=== PATIENT | male | born 1940 | race Caucasian/White ===

== ENCOUNTER 2022-08-30 06:49 | Observation (INO) ==
[2022-08-26 13:55] LABS: Basophils # (Auto) 0.08 K/mcL (0.00-0.30); Basophils % (Auto) 1.3 % (0.0-2.0); Eosinophils # (Auto) 0.34 K/mcL (0.00-0.70); Eosinophils % (Auto) 5.3 % (0.0-7.0); Hematocrit 44.9 % (40.1-51.0); Hemoglobin 14.1 g/dL (13.7-17.5); Lymphocytes # (Auto) 1.66 K/mcL (1.50-4.80); Lymphocytes % (Auto) 25.9 % (15.5-49.0); Mean Cell Volume 86.8 fL (80.0-100.0); Mean Corpuscular HGB Conc 31.4 g/dL (31.0-36.0); Mean Platelet Volume 10.7 fL (8.8-12.5); Monocytes # (Auto) 0.53 K/mcL (0.10-0.90); Monocytes % (Auto) 8.3 % (1.0-12.0); Platelet Count 192 K/mcL (140-440); RBC 5.17 M/mcL (4.63-6.08); Red Cell Distribution Width 13.5 % (11.5-14.5); WBC 6.4 K/mcL (4.5-11.0)
[2022-08-26 18:22] LABS: Blood Urea Nitrogen 14 mg/dL (8-23); Calcium 10.3 mg/dL (8.6-10.4); Carbon Dioxide 26 mmol/L (22-30); Chloride 103 mmol/L (96-108); Glomerular Filtration Rate 79; Glucose 86 mg/dL (70-105)
--- NOTE | 2022-08-27 09:57 | EKG ---
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
[~2022-08-30 06:49] MED LIST: AMPICILLIN SODIUM 2 GM in 0.9 % SODIUM CHLORIDE 100 ML IV SCH; GENTAMICIN SULFATE 180 MG in 0.9 % SODIUM CHLORIDE 250 ML IV SCH
[2022-08-30] MEDS ORDERED: LIDOCAINE HCL/PF 100 MG/5 ML SYRINGE IV ONE (08:29)
[2022-08-30] MEDS ORDERED: DEXAMETHASONE 10 MG/ML VIAL ONE (08:29)
[2022-08-30] MEDS ORDERED: fentaNYL 100 MCG/2 ML VIAL IV ONE (08:29)
[2022-08-30] MEDS ORDERED: GLYCOPYRROLATE 0.2 MG/ML VIAL IV ONE (08:29)
[2022-08-30] MEDS ORDERED: KETAMINE 50 MG/ML Syringe (ANEST) IV ONE (08:29)
[2022-08-30] MEDS ORDERED: ONDANSETRON 4 MG/2 ML VIAL ONE (08:29)
[2022-08-30] MEDS ORDERED: ROCURONIUM 10 MG/ML ML IV ONE (08:29)
[2022-08-30] MEDS ORDERED: MAGNESIUM SULFATE 2 GM/50 ML BAG IV ONE (08:29)
[2022-08-30] MEDS ORDERED: ESMOLOL 100 MG/10 ML VIAL IV ONE (08:29)
[2022-08-30] MEDS ORDERED: SUGAMMADEX SODIUM 200 MG/2 ML VIAL IV ONE (08:29)
[2022-08-30] MEDS ORDERED: PROPOFOL 200 MG/20 ML VIAL IV ONE (08:29)
[2022-08-30] MEDS ORDERED: METHOCARBAMOL 1,000 MG/10 ML VIAL IV PRN (09:07)
[2022-08-30] MEDS ORDERED: ePHEDrine 50 MG/ML AMPUL IV PRN (09:07)
[2022-08-30] MEDS ORDERED: ONDANSETRON 4 MG/2 ML VIAL IV PRN ×2 (09:07→10:22)
[2022-08-30] MEDS ORDERED: morphine 2 MG/ML VIAL IV PRN (09:07)
[2022-08-30] MEDS ORDERED: ATROPINE SULFATE 0.4 MG/ML VIAL IV PRN (09:07)
[2022-08-30] MEDS ORDERED: fentaNYL 100 MCG/2 ML VIAL IV PRN (09:07)
[2022-08-30] MEDS ORDERED: LACTATED RINGERS 250 ML IV PRN (09:07)
[2022-08-30] MEDS ORDERED: NALOXONE HCL 0.4 MG/ML VIAL IV PRN (09:07)
[2022-08-30] MEDS ORDERED: ACETAMINOPHEN 1,000 MG/100 ML BAG IV ONE (09:07)
[2022-08-30] MEDS ORDERED: IPRATROPIUM/ALBUTEROL 3 ML AMPUL.NEB NEB PRN (09:07)
[2022-08-30] MEDS ORDERED: METOPROLOL TARTRATE 5 MG/5 ML VIAL IV PRN (09:07)
[2022-08-30] MEDS ORDERED: LACTATED RINGERS 1,000 ML IV SCH (09:15)
[2022-08-30] MEDS ORDERED: HYDROcodone/APAP 5/325MG TABLET PO PRN (10:22)
[2022-08-30] MEDS ORDERED: BISACODYL 10 MG SUPP.RECT PR PRN (10:22)
[2022-08-30] MEDS ORDERED: HYDROmorphone 1 MG/ML SYRINGE IV PRN (10:22)
[2022-08-30] MEDS ORDERED: MAGNESIUM HYDROXIDE 30 ML ORAL.SUSP PO PRN (10:22)
--- NOTE | 2022-08-30 10:22 | Operative Note ---
Brief Operative Note Date of procedure: 08/30/22 Pre-op diagnosis: Bladder stones and BPH with obstruction Post-op diagnosis: same Procedure: Transurethral resection of the prostate and cystolitholapaxy Grafts/Implants: Yes (24 [place]ian three-way Morales catheter with 40 mL in balloon) Anesthesia: GETA Findings: 5-6 1.5 cm bladder stones and large obstructing prostate Complications: none Surgeon: Philippe Vazquez Estimated blood loss (cc): 75 Specimens Removed/Pathology: other (Prostate chips and bladder stones) Condition: stable Disposition: PACU Operative Note Operative Note: After obtaining informed consent from the patient, he was brought to the operating room was placed supine on the operating table. General anesthesia was provided. He was repositioned in a dorsolithotomy position was prepped and draped in usual sterile fashion. Attention was directed to the urethral meatus where a 21 [place]itanian cystoscope was passed per urethra into the bladder. Immediately seen were at least 5 possibly six 1.5 cm round, 10 bladder stones there was no evidence of tumor within the bladder. The prostate was seen to be large and obstructive with an elevated bladder neck and obstruction of the lateral lobes. There was significant bladder irritation due to the bladder stones. The bladder was filled and the cystoscope was removed. The urethra was calibrated using Kieran sounds to 30 Mauritanian. The 28 Mauritanian continuous-flow resectoscope sheath with obturator was then easily passed into the bladder. I began by resection of prostate tissue. I resected the left lateral lobe from the 6:00 to 12 o'clock position from the bladder neck to the verumontanum. The right lateral lobe was resected in a similar fashion. I was not able to identify the ureteral orifices and care was taken at the bladder neck. Once the prostate was open wide and enough to allow better visualization and evacuation of the stones I switched to the 21 [place]ian cystoscope. Using a 550 m laser fiber at bladder fragmentation settings using the thulium laser the stones were fragmented with difficulty. The stones were hard and somewhat gummy. Eventually I used a rigid grasper to further break the stones into smaller pieces which were then evacuated. Once the stone was completely evacuated I switched back to the resectoscope and resected more tissue. At this point I was able to identify the left ureteral orifice but not the right. I completed resection of the prostate and then obtained excellent hemostasis. Prostate chips and bladder stones were all evacuated from the bladder and passed off the table separately as specimens for pathologic examination labeled prostate chips and bladder stones once hemostasis was assured the bladder was refilled and the resectoscope was removed. Lidocaine jelly was placed in urethra in the bladder. A 24 [place]ian three-way Morales catheter was and easily passed per urethra and into the bladder. Balloon was ablated with 40 mL of sterile water. This is placed to gravity drainage and drained clear urine. The bladder was then hand irrigated using a Isaiah syringe and no further chips or bladder stones were obtained. The catheter was placed to gravity drainage and continuous bladder irrigation was started. The patient was then returned to the spine position. He was awakened returned to the recovery in stable condition.
[2022-08-30] MEDS ORDERED: CETIRIZINE 10 MG TABLET PO PRN (10:25)
[2022-08-30] MEDS ORDERED: ALBUTEROL SULFATE 200 PUFF INHALER IH PRN (10:35)
[2022-08-30] MEDS: DEXTROSE 5%-NS 1,000 ML IV SCH (11:32)
[2022-08-30] MEDS: 0.9 % SODIUM CHLORIDE 10 ML SYRINGE IV SCH ×2 (14:26→23:06)
[2022-08-30] MEDS ORDERED: ACETAMINOPHEN 325 MG TABLET PO PRN (18:09)
[2022-08-30] MEDS: ASPIRIN 81 MG TAB.CHEW PO SCH ×2 (19:41→20:06)
[2022-08-30] MEDS: NITROGLYCERIN 0.4 MG TAB.SUBL SL PRN ×2 (19:44→19:50)
[2022-08-30] MEDS ORDERED: 0.9 % SODIUM CHLORIDE 1,000 ML IV SCH (19:45)
[2022-08-30] MEDS ORDERED: NITROGLYCERIN 0.4 MG TAB.SUBL SL PRN (19:45)
[2022-08-30] MEDS ORDERED: ASPIRIN 81 MG TAB.CHEW CHEWED ONE (19:45)
[2022-08-30] MEDS ORDERED: 0.9 % SODIUM CHLORIDE 1,000 ML IV ONE (19:58)
[2022-08-30] MEDS ORDERED: ASPIRIN 325 MG ENTERIC COATED TABLET PO ONE (20:14)
--- NOTE | 2022-08-30 20:19 | Internal Medicine Consult Note ---
HPI Date of Consult Consult Date: 08/30/22 Primary Care Provider: Jad Bright Consult Narrative Patient Information: Note initiated : 08/30/22 at 8:16 pm Service Date, if different from initiated Date: [] Patient: Carloz Boyd 82 y/o M admitted on for Cysto-Litholapaxy and Trans Urethral Resecion of. Chief Complaint: [] Carloz Boyd is an 82-year-old male admitted to the hospital for treatment of bladder stones and severe benign prostate hypertrophy. The patient underwent a transurethral resection of the prostate and cystolitholapaxy on 06/30/2022. At around 7:45 PM a rapid response was called for chest discomfort. Hospital medicine was consulted per protocol. An EKG was obtained, showed normal sinus rhythm, no ST segment elevations or other dynamic changes concerning for cardiac ischemia. The patient received sublingual nitroglycerin and says that his chest pain improved. The patient says that he does have a history of coronary disease for which he had a stent prior stent placed. He says that the pain he is experiencing now is different than the chest pain he had which led to his stent placement. This pain is radiating to his lateral left chest. Upon examination his chest pain is not clearly reproducible with palpation. He denies that chest pain is worsened with deep breathing. Vitals are notable for hypotension that the nurse said started after he received his first dose of sublingual nitroglycerin. The patient also received a dose of IV Dilaudid for the chest pain. The patient is receiving continuous bladder irrigation as well as IV fluid with D5 normal saline. Review of systems Constitutional: no fever, fatigue, or weight loss Eyes: no vision changes or pain Cardiovascular: Positive for substernal chest pain radiating to lateral left chest. Respiratory: no cough or dyspnea Gastrointestinal: no abdominal pain, no nausea, vomiting, or diarrhea Genitourinary: no dysuria or difficulty voiding Musculoskeletal: no arthralgia or myalgia Integumentary: no skin lesion or wound Neurological: no focal weakness or numbness Psychiatric: no anxiety or depression Physical exam Head: Atraumatic, normal inspection. Eyes: normal appearance, no scleral icterus. Neck: full ROM Respiratory: no respiratory distress. Cardiovascular: normal rate and rhythm, S1, S2. GI/Abdominal: soft, nontender, no guarding. : Morales catheter present for continuous bladder irrigation. Extremities: full range of motion, nontender. Neurological: CN II-XII intact, intact motor, intact sensation. Psychiatric: normal mood. Skin: warm, normal color Chief complaint: Chest pain Reason for consult: Rapid Responce cc:: CC: Philippe Vazquez MD [facility] PFS All Active Problems (Updated 08/15/22 @ 16:43 by Philippe Vazquez MD) Benign prostatic hyperplasia with lower urinary tract symptoms (Chronic 04/17/14) Elevated PSA (Chronic 05/27/14) Gastroesophageal reflux (Chronic) Hypercholesterolemia (Chronic) Hx of appendectomy (Acute) Hx laparoscopic cholecystectomy (Acute 11/30/14) Hx of tonsillectomy (Acute) Hx of vasectomy (Acute) UTI (urinary tract infection) (Acute) Bladder stones (Acute) Elevated PSA, between 10 and less than 20 ng/ml (Acute) Medical History (Updated 08/15/22 @ 16:43 by Philippe Vazquez MD) Benign prostatic hyperplasia with lower urinary tract symptoms (04/17/14) Elevated PSA (05/27/14) Gastroesophageal reflux Hypercholesterolemia Surgical History Hx laparoscopic cholecystectomy (11/30/14) Hx of appendectomy Hx of tonsillectomy Hx of vasectomy x2 Family History Other No pertinent family history Social History smoking status: Former smoker alcohol intake frequency: does not drink substance use type: does not use MEDS/ALLERGIES Home Medications and Allergies Home Medications Medication Instructions Recorded Confirmed Type atorvastatin 40 mg tablet 20 mg PO QHS 09/22/15 08/30/22 History aspirin 81 mg tablet,delayed 81 mg PO QPM 10/26/16 08/30/22 History release tamsulosin 0.4 mg capsule 0.8 mg PO QHS 08/15/22 08/30/22 History albuterol 90 mcg/actuation aerosol 90 mcg inhalation DAILY PRN SOB 08/26/22 08/30/22 History inhaler cetirizine 10 mg tablet (Aller-Omar) 10 mg PO QDAY PRN ALLERGIES 08/26/22 08/30/22 History ferrous sulfate 325 mg (65 mg 325 mg PO QAM 08/26/22 08/30/22 History iron) tablet ginkgo biloba 60 mg tablet 60 mg PO QAM 08/26/22 08/30/22 History guaifenesin 400 mg tablet (Mucus 400 mg PO DAILY PRN Congestion 08/26/22 08/30/22 History Relief) nitroglycerin 0.4 mg sublingual 0.4 mg sublingual Q5M PRN Chest 08/26/22 08/30/22 History tablet Pain omeprazole 20 mg tablet,delayed 20 mg PO QAM 08/26/22 08/30/22 History release Allergies Allergy/AdvReac Type Severity Reaction Status Date / Time No Known Drug Allergies Allergy Verified 08/30/22 07:15 EXAM Constitutional Vitals: Temp Pulse Resp BP Pulse Ox O2 Del Method O2 Flow Rate 96.9 F L 85 22 96/64 93 6 08/30/22 19:08 08/30/22 19:54 08/30/22 19:08 08/30/22 19:54 08/30/22 19:54 08/30/22 19:54 08/30/22 10:35 A/P Narrative A/P Narrative: Assessment: 82-year-old male with a history of coronary artery disease status post stent admitted for transurethral resection of the prostate and cystolitholapaxy performed 08/30/2022. Hospital medicine was consulted for a rapid response for chest pain. #Chest pain #Hypotension #History of coronary status post stent #GERD #Status post transurethral resection of prostate and cystolitholapaxy 08/30/22 Plan -Transfer to PCU for closer monitoring. -EKG obtained : Normal sinus rhythm, no ST elevations or other dynamic changes. -Troponin every 3 hours x3. -Chest x-ray. -IV fluid bolus then continuous IVF, follow blood pressure. -Obtain CBC and CMP. -lunchroom monitor. -Continue home aspirin, atorvastatin. Time Spent With Patient Time: Total time spent is greater than 50% in coordination of care (as documented) at patient's floor/unit and/or counseling patient:
[2022-08-30] MEDS ORDERED: ATORVASTATIN 40 MG TABLET PO SCH (21:00)
[2022-08-30 21:05] LABS: Basophils # (Auto) 0.01 K/mcL (0.00-0.30); Basophils % (Auto) 0.1 % (0.0-2.0); Eosinophils # (Auto) 0 K/mcL (0.00-0.70); Eosinophils % (Auto) 0 % (0.0-7.0); Hematocrit 38.4 % (40.1-51.0); Hemoglobin 12.2 g/dL (13.7-17.5); Lymphocytes # (Auto) 0.83 K/mcL (1.50-4.80); Lymphocytes % (Auto) 8.8 % (15.5-49.0); Mean Cell Volume 87.5 fL (80.0-100.0); Mean Corpuscular HGB Conc 31.8 g/dL (31.0-36.0); Monocytes # (Auto) 0.22 K/mcL (0.10-0.90); Monocytes % (Auto) 2.3 % (1.0-12.0); Neutrophils % (Auto) 88.5 % (38.0-78.0); Platelet Count 177 K/mcL (140-440); RBC 4.39 M/mcL (4.63-6.08); Red Cell Distribution Width 13.4 % (11.5-14.5); WBC 9.4 K/mcL (4.5-11.0)
[2022-08-30 21:33] LABS: Creatine Kinase MB 1.6 ng/mL (<6.7)
[2022-08-30 21:35] LABS: ALT/SGPT 24 U/L (<40); AST/SGOT 24 U/L (<40); Albumin 3.1 gm/dL (3.2-5.2); Albumin/Globulin Ratio 1.1 (1.0-2.3); Alkaline Phosphatase 100 U/L (39-117); Bilirubin,Total 0.3 mg/dL (0.1-1.0); Blood Urea Nitrogen 10 mg/dL (8-23); Calcium 8.5 mg/dL (8.6-10.4); Carbon Dioxide 23 mmol/L (22-30); Chloride 105 mmol/L (96-108); Creatine Kinase 139 U/L (24-195); Globulin 2.7 gm/dL (2.2-3.7); Glomerular Filtration Rate 70; Glucose 164 mg/dL (70-105)
--- NOTE | 2022-08-31 02:15 | XRay Report ---
CLINICAL INFORMATION: Chest pain COMPARISON: None. TECHNIQUE: Portable FINDINGS: The heart size, mediastinum and pulmonary vessels are unremarkable. Minor airspace disease in the right infrahilar region likely represents atelectasis. There are no effusions. The bones and soft tissues are within normal limits. IMPRESSION: Normal chest. Interpreted and Authenticated by: Will Mao 08/31/22
[2022-08-31] MEDS: 0.9 % SODIUM CHLORIDE 10 ML SYRINGE IV SCH (04:47)
[2022-08-31] MEDS: DEXTROSE 5%-NS 1,000 ML IV SCH (05:28)
[2022-08-31 06:10] LABS: Hematocrit 38.6 % (40.1-51.0); Hemoglobin 12.3 g/dL (13.7-17.5); Mean Cell Volume 87.9 fL (80.0-100.0); Mean Corpuscular HGB Conc 31.9 g/dL (31.0-36.0); Mean Platelet Volume 10.9 fL (8.8-12.5); Platelet Count 172 K/mcL (140-440); RBC 4.39 M/mcL (4.63-6.08); Red Cell Distribution Width 13.5 % (11.5-14.5); WBC 13.4 K/mcL (4.5-11.0)
[2022-08-31 06:55] LABS: Blood Urea Nitrogen 13 mg/dL (8-23); Carbon Dioxide 24 mmol/L (22-30); Chloride 107 mmol/L (96-108); Glomerular Filtration Rate 79; Glucose 131 mg/dL (70-105)
--- NOTE | 2022-08-31 07:48 | Urology Progress Note ---
SUBJECTIVE Subjective Patient information: Note initiated : 08/31/22 at 7:42 am Service Date, if different from initiated Date: [] Patient: Carloz Boyd a 82 y/o M admitted on for Cysto-Litholapaxy and Trans Urethral Resecion of. Chief Complaint: [BPH with urinary retention and bladder stones] Principal diagnosis: BPH with urinary retention and bladder stones Interval history: Carloz is postoperative day #1 status post cystolitholapaxy and transurethral resection of the prostate. Last evening he began to complain of severe chest pain. EKG was within normal limits. The hospitalist service was consulted and performed a complete evaluation after rapid response. I have spoken with the hospitalist who indicates that it is unlikely that the patient had a myocardial infarction. He should be safe for discharge. The patient feels well this morning and has no complaints. Continuous bladder irrigation was run overnight and was clamped at 5 AM. The urine remains a clear pink/denia color. Constitutional Vitals: Vital Signs Temp Pulse Resp BP Pulse Ox O2 Del Method O2 Flow Rate 97.3 F 65 13 125/64 93 5 08/31/22 04:01 08/31/22 06:01 08/31/22 06:01 08/31/22 06:01 08/31/22 06:01 08/31/22 06:01 08/30/22 22:00 Period Temp Pulse Resp BP Sys/G[place]illo Pulse Ox O2 Del Method O2 Flow Rate Last 24 Hr 96.9 F-98.4 F 57-98 12-22 96-157/58-93 87-100 Nasal Cannula- Simple Mask 2-6 Intake and Output 08/30/22 08/31/22 08/31/22 21:59 05:59 13:59 Intake Total 72720 6350 Output Total 65718 7525 Balance 1150 -1175 Intake & Output: Intake & Output 08/30/22 08/31/22 08/31/22 21:59 05:59 13:59 Intake Total 54790 6350 Output Total 98103 7525 Balance 1150 -1175 Intake: IV 1000 Sodium Chloride 0.9% 1,000 ml @ 1000 Wide Open IV BOLUS ONE Rx#: [id number] Oral 2750 800 CBI Fluid 14710 5550 Output: CBI Fluid 21512 7525 Other: Meal Dinner Percent of Meal Consumed 100% Feeding Ability Independent Urine Appearance Clear Clear 3-way Urethral Clear Urine Color Light [place] Yellow Light [place] 3-way Urethral Dark [place] Light [place] Urine Odor Normal Net [phone] [phone] General appearance: average body habitus, cooperative and no acute distress Respiratory Respiratory exam: Present normal respiratory exam Cardiovascular Cardiovascular exam: Present normal rate and rhythm Expanded Exam Urine Appearance: Clear and Hematuria Urine Color: Dark [place] A/P Assessment and plan (1) Bladder stones: Status: Acute (2) Benign prostatic hyperplasia with lower urinary tract symptoms: Status: Chronic (3) Chest pain: Status: Acute Narrative A/P Narrative: Carloz is an 82-year-old male who is postoperative day #1 status post cystolitholapaxy and transurethral resection of the prostate. Overnight he complained of severe chest pain and a rapid response was called. ND was deemed low probability. The patient has been cleared for discharge to home. We will send the patient home today with pain medication, and antibiotic and a Morales catheter. The irrigation port of the Morales catheter will be clamped and the large drainage port will be placed to gravity drainage. The patient will be given a leg bag and night bag and be taught care and use. We will follow-up with him as scheduled for a voiding trial in the office. Time Spent With Patient Time: Total time spent is greater than 50% in coordination of care (as documented) at patient's floor/unit and/or counseling patient: Total time spent with greater than 50% in coordination of care (as documented) at patient's floor/unit and/or counseling patient:: less than 15 minutes
[2022-08-31] MEDS ORDERED: OMEPRAZOLE 20 MG CAPSULE PO SCH (09:00)
--- NOTE | 2022-08-31 14:45 | EKG ---
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
== END 2022-08-31 12:15 ==
LOC: ICU 06:49 → SUR 06:49 → MEDSUR 11:25 → ICU 21:13
PROVIDERS: ADMIT Internal Medicine; ATTEND Internal Medicine